=== PATIENT | male | born 1995 | race Caucasian/White ===

== ENCOUNTER → 2022-05-03 | Outpatient (CLI) | payer BC, SELFPAY ==
--- NOTE | 2022-05-03 | SEP_PTH ---
PATIENT: PATRIA POLANCO [facility] U#:[id number] AGE/SX: 26/M ROOM: RE05/03/[address]: Dr. Esequiel Hale MD : 1995 BED: DIS: 05/03/2022 SPEC #: [id number] RECD: 05/03/22 14:49 STATUS: KRYSTAL CHRIS #: [id number] VAN: 05/03/22 00:[address]: Esequiel Hale DEPT: SURGICAL PATHOLOGY RECD BY: Rico Gonsalez ENTERED: 05/04/22 10:09 SP TYPE: SEPTUM OTHR DR: KAM Tissues: Nasal septum, NOS Procedures: Decalcification bone/plaque Surgery Specimen Level III HEADER OPERATION: Septoplasty, resection of inferior turbinates PRE-OP DIAGNOSIS: Nasal congestion, allergic rhinitis, hypertrophy of nasal turbinates, deviated nasal septum TISSUE SUBMITTED: Septum MICROSCOPIC DIAGNOSIS Septum, septoplasty: Fragments of bone and cartilage, clinically deviated nasal septum. A fragment of benign respiratory mucosa. KHUSHBU:ismael 05/07/2022 MICROSCOPIC DESCRIPTION Slides are reviewed. GROSS DESCRIPTION Received in fixative is one container labeled with the patient's name and designated septum. The specimen consists of multiple irregular fragments of bone and cartilage that in aggregate measure 3.5 x 3.0 x 0.3 cm. Print Decorator tissue is submitted in one cassette after decalcification. / KHUSHBU:ismael 05/04/2022 TC:5 CPT: 56886, 50732
== END | disposition home or self-care (01) ==
PROVIDERS: Referring Provider Otolaryngology; Visit Provider Otolaryngology
DX: J34.2 Deviated nasal septum (principal)
CPT/HCPCS: 88304; 88311